=== PATIENT | male | born 1965 | race Caucasian/White ===

== ENCOUNTER 2017-12-18 19:40 | Emergency (ER) | payer OTHER, MEDICAID, SELFPAY ==
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
[2017-12-18 19:45] VITALS: BP 148/97; PULSE 88; RESP 14; TEMP 36.5; O2SAT 98
[2017-12-18 19:48] VITALS: BP 148/77; PULSE 88; RESP 14; TEMP 36.5; O2SAT 98
[2017-12-18 19:52] LABS: Add Manual Diff / Slide Review NO; Basophils Percent Auto 1.4 % (0-2); Eosinophils Percent Auto 2.7 % (2-4); Hematocrit 43.2 % (41-53); Lymphocytes Percent Auto 35.7 % (25-40); Mean Corpuscular HGB Conc 34.7 % (30-36); Mean Corpuscular Hemoglobin 32.1 PG (26-34); Mean Corpuscular Volume 92.6 fL (80-100); Monocytes Percent Auto 7.1 % (3-14); Neutrophils Absolute Auto 4800 /uL (3000-5900); Neutrophils Percent Auto 53.1 % (50-75); Platelet Count 234 X10^3/uL (150-400); Red Blood Cell Count 4.66 X10^6/uL (4.5-5.9); Red Cell Distribution Width 13.8 % (11.6-14.8)
[2017-12-18 20:03] LABS: Alanine Aminotransferase 32 IU/L (21-72); Albumin 4.9 g/dL (3.5-5.0); Alkaline Phosphatase 50 U/L (38-126); Aspartate Aminotransferase 45 IU/L (17-59); Bilirubin Total 0.3 mg/dL (0.2-1.3); Blood Urea Nitrogen 20 mg/dL (9-20); Calcium 9.4 mg/dL (8.4-10.2); Carbon Dioxide 23 mmol/L (22-32); Chloride 108 mmol/L (98-107); Creatine Kinase 166 U/L (55-170); Estimated Glomerular Filt Rate > 60.0 mL/min (>60); Globulin 2.5 g/dL (1.7-4.1); Glucose 117 mg/dL (70-100); HEMOLYSIS < 15 (0-50); Potassium 4.1 mmol/L (3.4-5.1); Sodium 145 mmol/L (137-145); Total Protein 7.4 g/dL (6.3-8.2)
[2017-12-18 20:18] LABS: CKMB % Relative Index 1.6 % (1.5-5.0); Creatine Kinase MB 2.71 ng/mL (<2.37)
[2017-12-18 20:20] LABS: Troponin I < 0.012 ng/mL (0.01-0.034)
[2017-12-18 20:36] VITALS: BP 132/40; PULSE 83; RESP 16; O2SAT 98
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
== END 2017-12-18 20:42 | disposition left against medical advice (07) ==
LOC: ED 20:05
PROVIDERS: Emergency Provider Emergency Medicine; Family Provider Family Medicine; PCP Family Medicine
DX: R55 Syncope and collapse (principal)
CPT/HCPCS: 36591; 70450; 71045; 72125; 80053; 82550; 82553; 82962; 84484; 85025; 93005; 93010; 99282

== ENCOUNTER → 2018-04-25 14:04 | Outpatient (CLI) | payer OTHER, MEDICAID, SELFPAY ==
--- NOTE | 2018-04-25 14:05 | DI.RAD.S_ITS ---
PROCEDURE: XR SHOULDER LT MIN 2V INDICATIONS: pain with internal rotation TECHNIQUE: 3 views of the shoulder were acquired. COMPARISON: [facility], , SHOULDER MINIMUM 2VIEW RIGHT, 01/05/2012, 17:17. FINDINGS: Bones: No fractures or dislocations. No suspicious bony lesions. Visualized ribs appear intact. Mild acromioclavicular angling humeral joint degeneration. Soft tissues: No suspicious soft tissue calcifications. IMPRESSION: Mild left shoulder joint degeneration. Dictated by: Delvin Saleh M.D. on 04/25/2018 at 16:13 Approved by: Delvin Saleh M.D. on 04/25/2018 at 16:20
== END ==
PROVIDERS: PCP Family Medicine; Visit Provider Family Medicine
DX: M25.512 Pain in left shoulder (principal); M19.012 Primary osteoarthritis, left shoulder
CPT/HCPCS: 73030

== ENCOUNTER → 2018-08-31 09:06 | Outpatient (CLI) | payer OTHER, MEDICAID, SELFPAY ==
[2018-08-31 09:22] LABS: Add Manual Diff / Slide Review NO; Basophils Absolute Auto 100 /uL (0-100); Basophils Percent Auto 1.3 % (0-2); Eosinophils Absolute Auto 200 /uL (0-450); Eosinophils Percent Auto 3.2 % (2-4); Hematocrit 45.3 % (41-53); Hemoglobin 15.8 g/dL (13.5-17.5); Lymphocytes Absolute Auto 1800 /uL (1100-4500); Mean Corpuscular HGB Conc 34.9 % (30-36); Mean Corpuscular Hemoglobin 33.2 PG (26-34); Monocytes Absolute Auto 800 /uL (0-900); Monocytes Percent Auto 11.7 % (3-14); Neutrophils Absolute Auto 3600 /uL (1500-7000); Neutrophils Percent Auto 55.8 % (50-75); Platelet Count 185 X10^3/uL (150-400); Red Blood Cell Count 4.77 X10^6/uL (4.5-5.9); Red Cell Distribution Width 13.6 % (11.6-14.8); White Blood Cell Count 6.5 X10^3/uL (4.5-11.0)
[2018-08-31 09:49] LABS: Alanine Aminotransferase 34 IU/L (21-72); Albumin 4.5 g/dL (3.5-5.0); Albumin Globulin Ratio 1.7 (1.0-2.8); Alkaline Phosphatase 54 U/L (38-126); Aspartate Aminotransferase 33 IU/L (17-59); BUN Creatinine Ratio 32.5 (6-22); Bilirubin Total 0.6 mg/dL (0.2-1.3); Blood Urea Nitrogen 26 mg/dL (9-20); Calcium 9.5 mg/dL (8.4-10.2); Carbon Dioxide 28 mmol/L (22-32); Chloride 101 mmol/L (98-107); Cholesterol 134 mg/dL (140-199); Estimated Glomerular Filt Rate > 60.0 mL/min (>60); Globulin 2.6 g/dL (1.7-4.1); Glucose 95 mg/dL (70-100); HDL Cholesterol 53 mg/dL (40-60); HEMOLYSIS < 15 (0-50); LDL Cholesterol Calculated 58 mg/dL (<100); Potassium 4.4 mmol/L (3.4-5.1); Sodium 138 mmol/L (137-145); Total Protein 7.1 g/dL (6.3-8.2); Triglycerides 115 mg/dL (35-150)
[2018-08-31 10:37] LABS: TSH w/ Reflex to FT4 1.04 uIU/mL (0.47-4.68)
== END ==
PROVIDERS: PCP Family Medicine; Visit Provider Family Medicine
DX: I34.1 Nonrheumatic mitral (valve) prolapse (principal); Z00.00 Encounter for general adult medical examination without abnormal findings; Z13.6 Encounter for screening for cardiovascular disorders
CPT/HCPCS: 36415; 80053; 80061; 84443; 85025

== ENCOUNTER 2019-09-07 15:13 | Emergency (ER) | payer OTHER, MEDICAID, SELFPAY ==
[2019-09-07 15:22] VITALS: BP 141/97; PULSE 102; RESP 18; TEMP 36.8; O2SAT 99; BMI 25.7
[2019-09-07 15:33] VITALS: BP 134/82; PULSE 90; RESP 16; O2SAT 97
--- NOTE | 2019-09-07 15:51 | ED.DENTAL ---
HPI - Dental/Oral <DALLAS Benites - Last Filed: 09/07/19 17:07> General Chief complaint: Dental/Oral Stated complaint: BAD TOOTH LEFT UPPER MOLAR Time Seen by Provider: 09/07/19 15:24 Source: patient Mode of arrival: Ambulatory Limitations: no limitations History of Present Illness HPI Narrative: The patient is a 54-year-old male current smoker with history of mitral valve prolapse who presents with a chief complaint of a ?bad tooth.He states has been bothering him for a few weeks, and he had an appointment with a dentist. However it was canceled due to states shut down. He is concerned that it is becoming infected as he has had dental infection before and it feels like this. He denies any fevers nausea vomiting or diarrhea. The tooth is his front right upper molar. He states has been broken for a long time. He states he is supposed to have an appointment with a dentist in a few days unless this appointment is canceled as well. Related Data Home Medications Medication Instructions Recorded Confirmed MULTIVITAMIN (Multivitamin 1 cap PO EVERY DAY #0 04/08/08 09/04/18 -) Previous Rx's Medication Instructions Recorded timolol maleate 1 drp OPHTH QDAY #5 5ml 02/27/16 pramipexole 1 mg tablet See Rx Instructions .ROUTE 07/27/19 .COMPLEX #60 tablet albuterol sulfate 90 mcg/actuation 2 puff INHALATION Q6H PRN #18 gram 09/07/19 aerosol inhaler baclofen 10 mg tablet See Rx Instructions .ROUTE 09/07/19 .COMPLEX #90 tablet meloxicam 7.5 mg tablet See Rx Instructions .ROUTE 09/07/19 .COMPLEX #60 tablet penicillin V potassium 500 mg PO QID 10 Days #40 tab 09/07/19 tramadol 50 mg PO Q8H PRN #7 tab 09/07/19 Allergies Allergy/AdvReac Type Severity Reaction Status Date / Time No Known Drug Allergies Allergy Verified 09/07/19 15:22 Review of Systems <DALLAS Benites - Last Filed: 09/07/19 17:07> Review of Systems Narrative: GENERAL: Denies chills, fatigue, malaise, fever, sweats. HEENT: See HPI RESPIRATORY: Denies dyspnea, cough, wheezing, hemoptysis, sputum. CARDIOVASCULAR: Denies chest pain, palpitations, orthopnea, edema, GASTROINTESTINAL: Denies nausea, vomiting, abdominal pain, diarrhea, constipation, melena. : Denies dysuria, frequency, incontinence, hematuria, urinary retention. MUSCULOSKELETAL: denies weakness, joint pain, or bony pain SKIN: Denies rash, skin lesions, or other NEUROLOGIC: Denies weakness, headache, numbness, change in speech, confusion, seizures, incoordination. PSYCHIATRIC: No concerning psychosocial issues. 12 point review of systems is negative except for those stated above Patient History <DALLAS Benites - Last Filed: 09/07/19 17:07> Medical History Acne (Resolved) Chicken pox (Resolved ~1970) Chronic back pain (Chronic 03/2013) Chronic headaches (Chronic) COPD (chronic obstructive pulmonary disease) (Chronic) Heart murmur (Chronic) Mitral valve prolapse (Chronic ~2011) Surgical History Anesthesia (Resolved) H/O inguinal hernia repair (Resolved) H/O removal of neck cyst (Resolved) Status post tonsillectomy and adenoidectomy (Resolved) Family History Mother Heart disease Social History marital status: Smoking Status: Current every day smoker alcohol intake: current (2+ A DAY ) substance use type: marijuana Smoking Status: Current every day smoker alcohol intake frequency: 3 or more drinks per day Alcohol type: beer Substance Use Type: marijuana Exam <DALLAS Benites - Last Filed: 09/07/19 17:07> Narrative Exam Narrative: GENERAL: This is a well-nourished, well-developed patient, no acute distress HEAD: Atraumatic. Normocephalic. No temporal or scalp tenderness. EYES: Pupils equal round and reactive. Extraocular motions intact. No scleral icterus. No injection or drainage. ENT: Nose without bleeding, purulent drainage or septal hematoma. Throat without erythema, tonsillar hypertrophy or exudate. Uvula midline. Airway patent. Poor dentition noted. Broken right upper molar with surrounding erythema, no palpable abscess. No obvious drainage. NECK: Trachea midline. No JVD or lymphadenopathy. Supple, nontender, no meningeal signs. CARDIOVASCULAR: Regular rate and rhythm RESPIRATORY: Clear to auscultation. Breath sounds equal bilaterally. No wheezes, rales, or rhonchi. No cough. No increased respiratory effort. No accessory muscle use. GASTROINTESTINAL: Abdomen soft, non-tender, nondistended. No hepato-splenomegaly, or palpable masses. No guarding. EXTREMITIES: No clubbing, cyanosis, or edema. No joint tenderness, effusion, or edema noted. BACK: Nontender without deformity or crepitance. No flank tenderness. NEURO: AOx3. SKIN: No rash or erythema. Initial Vital Signs Initial Vital Signs: Vital Signs Temperature 98.2 F 09/07/19 15:22 Pulse Rate 102 H 09/07/19 15:22 Respiratory Rate 18 09/07/19 15:22 Blood Pressure 141/97 H 09/07/19 15:22 Pulse Oximetry 99 09/07/19 15:22 <Scarlett Michaud DO - Last Filed: 09/07/19 19:23> Initial Vital Signs Initial Vital Signs: Vital Signs Temperature 98.2 F 09/07/19 15:22 Pulse Rate 102 H 09/07/19 15:22 Respiratory Rate 18 09/07/19 15:22 Blood Pressure 141/97 H 09/07/19 15:22 Pulse Oximetry 99 09/07/19 15:22 Scores <DALLAS Benites - Last Filed: 09/07/19 17:07> GCS [place] coma scale eye opening: Spontaneous [place] coma scale verbal response: Orientated [place] coma scale motor response: Obey commands [place] coma scale total score: 15 Course <DALLAS Benites - Last Filed: 09/07/19 17:07> Vital Signs Vital signs: Vital Signs - 8 hr 09/07/19 15:22 09/07/19 15:33 Temperature 98.2 F Pulse Rate 102 H 90 Respiratory Rate 18 16 Blood Pressure 141/97 H Blood Pressure [Right Arm] 134/82 Pulse Oximetry 99 97 <Scarlett Michaud DO - Last Filed: 09/07/19 19:23> Vital Signs Vital signs: Vital Signs - 8 hr 09/07/19 15:22 09/07/19 15:33 Temperature 98.2 F Pulse Rate 102 H 90 Respiratory Rate 18 16 Blood Pressure 141/97 H Blood Pressure [Right Arm] 134/82 Pulse Oximetry 99 97 MDM - Dental/Oral <MARCIA Benites-BC - Last Filed: 09/07/19 17:07> [facility] Narrative Medical decision making narrative: The patient is a 54-year-old male who presents with a chief complaint of dental pain and concern for infection. Exam does indicate infection. However no palpable abscess. I will initiate treatment with penicillin, discussed at length strict follow-up with his dentist as scheduled discussed monitoring for signs and symptoms of systemic infection. Discussed tramadol for pain. Patient has no questions or concerns upon discharge and states understanding return precautions as well as follow-up care. Discharge Plan Departure Patient Disposition: Home Clinical Impression: Dental infection Discharge Date/Time: 09/07/19 16:00 Instructions: Tooth Abscess, DI for Dental Pain Activity Restrictions/Additional Instructions: Thank you for trusting us with your care today. Given your exam, sent [facility] This will treat your dental infection. As discussed, please follow-up with primary care provider and dentist. I also sent in a small prescription of tramadol for pain You have been prescribed narcotic medications. While on these medications you cannot drive or operate heavy machinery. Additionally you cannot sign legal documents or perform any duties such as this. Many people get constipated on narcotic medications so it would be advisable to discuss stool softeners with the pharmacist when you pick up and delivery driver your prescription. Please understand that we cannot provide further refills of narcotics or controlled substances through the ED. Prescriptions: New penicillin V potassium 500 mg tablet 500 mg PO QID 10 Days Qty: 40 RF: 0 tramadol 50 mg tablet 50 mg PO Q8H PRN (Reason: pain) Qty: 7 RF: 0 No Action MULTIVITAMIN (Multivitamin -) 1 cap PO EVERY DAY Qty: 0 RF: 0 timolol maleate 0.5 % drops 1 drp OPHTH QDAY Qty: 5 RF: 0 pramipexole 1 mg tablet See Rx Instructions .ROUTE .COMPLEX Qty: 60 RF: 2 albuterol sulfate 90 mcg/actuation HFA aerosol inhaler 2 puff INHALATION Q6H PRN (Reason: shortness of breath) Qty: 18 RF: 6 baclofen 10 mg tablet See Rx Instructions .ROUTE .COMPLEX Qty: 90 RF: 1 meloxicam 7.5 mg tablet See Rx Instructions .ROUTE .COMPLEX Qty: 60 RF: 3 Referrals: Mateo Gao MD [Primary Care Provider] -
== END 2019-09-07 16:00 | disposition home or self-care (01) ==
PROVIDERS: Emergency Provider Nurse Practitioner Family; PCP Family Medicine
DX: K04.7 Periapical abscess without sinus (principal)
CPT/HCPCS: 99281

== ENCOUNTER → 2022-10-15 09:06 | Outpatient (CLI) | payer OTHER, MEDICAID, SELFPAY ==
[2022-10-15 09:51] LABS: Add Manual Diff / Slide Review NO; Basophils Absolute Auto 100 /uL (0-100); Basophils Percent Auto 1.2 % (0-2); Eosinophils Absolute Auto 300 /uL (0-450); Eosinophils Percent Auto 5.5 % (2-4); Hematocrit 34.5 % (41-53); Hemoglobin 11.5 g/dL (13.5-17.5); Lymphocytes Absolute Auto 1700 /uL (1100-4500); Lymphocytes Percent Auto 28.5 % (25-40); Mean Corpuscular HGB Conc 33.4 % (30-36); Mean Corpuscular Hemoglobin 32.7 PG (26-34); Monocytes Absolute Auto 900 /uL (0-900); Monocytes Percent Auto 14.6 % (3-14); Neutrophils Absolute Auto 3000 /uL (1500-7000); Neutrophils Percent Auto 50.2 % (50-75); Platelet Count 202 X10^3/uL (150-400); Red Blood Cell Count 3.52 X10^6/uL (4.5-5.9); Red Cell Distribution Width 14.8 % (11.6-14.8)
[2022-10-15 10:06] LABS: BUN Creatinine Ratio 13.2 (6-22); Blood Urea Nitrogen 15 mg/dL (9-20); Carbon Dioxide 22 mmol/L (22-32); Chloride 105 mmol/L (98-107); Estimated Glomerular Filt Rate > 60 mL/min (>60); Glucose 85 mg/dL (70-100); HEMOLYSIS < 15 (0-50); Potassium 4.1 mmol/L (3.4-5.1); Sodium 135 mmol/L (137-145)
== END ==
PROVIDERS: PCP Family Medicine; Referring Provider Internal Medicine Nephrology; Visit Provider Internal Medicine Nephrology
DX: N17.9 Acute kidney failure, unspecified (principal)
CPT/HCPCS: 36415; 80048; 85025

== ENCOUNTER → 2022-11-11 15:23 | Outpatient (CLI) | payer OTHER, MEDICAID, SELFPAY ==
[2022-11-11 18:08] LABS: TSH w/ Reflex to FT4 2.74 uIU/mL (0.47-4.68)
== END ==
PROVIDERS: PCP Family Medicine; Referring Provider Physician Assistant; Visit Provider Physician Assistant
DX: R79.89 Other specified abnormal findings of blood chemistry (principal)
CPT/HCPCS: 36415; 84443

== ENCOUNTER → 2022-12-10 08:46 | Outpatient (CLI) | payer OTHER, MEDICAID, SELFPAY ==
[2022-12-10 09:56] LABS: TSH w/ Reflex to FT4 2.55 uIU/mL (0.47-4.68)
== END ==
PROVIDERS: PCP Family Medicine; Referring Provider Family Medicine; Visit Provider Family Medicine
DX: I48.91 Unspecified atrial fibrillation (principal)
CPT/HCPCS: 36415; 84443

== ENCOUNTER → 2023-03-04 15:15 | Outpatient (CLI) | payer OTHER, MEDICAID, SELFPAY ==
[2023-03-04 16:39] LABS: BUN Creatinine Ratio 10.7 (6-22); Blood Urea Nitrogen 12 mg/dL (9-20); Calcium 9.7 mg/dL (8.4-10.2); Carbon Dioxide 22 mmol/L (22-32); Chloride 104 mmol/L (98-107); Estimated Glomerular Filt Rate > 60 mL/min (>60); Glucose 95 mg/dL (70-100); HEMOLYSIS < 15 (0-50); Potassium 4.6 mmol/L (3.4-5.1); Sodium 139 mmol/L (137-145)
== END ==
PROVIDERS: PCP Family Medicine; Referring Provider Internal Medicine; Visit Provider Internal Medicine
DX: I34.0 Nonrheumatic mitral (valve) insufficiency (principal)
CPT/HCPCS: 36415; 80048

== ENCOUNTER → 2023-03-14 07:53 | Outpatient (CLI) | payer OTHER, MEDICAID, SELFPAY ==
--- NOTE | 2023-03-14 07:55 | DI.ECHO.S_ITS ---
[place] [facility]---------+ [facility] +---------+ : : [address] : : : : [id number] : : : : Phone: [phone]+ Echocardiogram Report + + :Name: ERIBERTO WATERS Study Date: 03/14/2023 Height: 74 in : :[facility] ReadingLocation: Weight: 217 lb : : Gender: Male BSA: 2.2 m2 : :: 1965 Age: 57 yrs BP: 110/78 mmHg: :Reason For Study: MITRAL REGURGITATION : :Ordering Physician: ЕЛЕНА, : :CARLOS Performed By: Radha Olson : :Referring: CARLOS CHRISTIANSEN : + + Interpretation Summary A-fib with rapid ventricular response. Heart rate is 109-112 bpm. Normal LV size and wall thickness. Normal wall motion and LV systolic function. Ejection fraction 60-65%. Severe left atrial enlargement and moderate right atrial enlargement. Mitral valve posterior leaflet is prolapsed with severe eccentric anteroseptally directed mitral regurgitation. Effective regurgitant area 0.6 magnet maker? regurgitant volume is 63 mL. There is pulmonary vein systolic flow reversal consistent with severe mitral regurgitation. There is a pacing lead traversing the tricuspid valve Estimated PA systolic pressure is 25 mm Hg assuming RA pressure of 3 mm Hg. Compared to prior study obtained September 09, 2022, heart rate is more rapid. LV is more dynamic. Ejection fraction is up from 35-40% to now being 60-65%. Procedure: A two-dimensional transthoracic echocardiogram with color flow and Doppler was performed. The study quality was technically adequate. Comparison is made with the echocardiogram of 09/09/2022. The patient was in atrial fibrillation with rapid ventricular response during the exam with a heart rate exceeding 100 bpm. Left Ventricle: The left ventricle is normal in size and wall thickness. The ejection fraction is estimated to be 60-65%. Diastolic function could not be accurately assessed due to tachycardia. Right Ventricle: The right ventricle is normal in size and function. Atria: The left atrium is severely dilated. The right atrium is moderately dilated. There is no Doppler evidence for an interatrial shunt. Mitral Valve: The mitral valve leaflets appear mildly thickened, but open well. There is prolapse of the posterior mitral valve leaflet(s). Difficult to estimate severity of regurgitant jet due to eccentric jet, appears to be at least moderate regurgitation. Aortic Valve: The aortic valve is trileaflet. The aortic valve opens well. There is no aortic valve stenosis. No aortic regurgitation is present. Tricuspid Valve: The tricuspid valve is normal in structure and function. There is trace tricuspid regurgitation. Pulmonic Valve: The pulmonic valve is not well seen, but is grossly normal. There is mild pulmonic regurgitation. Great Vessels: The aortic root is normal size. The dimensions of the ascending aorta are normal. The IVC is of normal diameter and collapses greater than 50% with a sniff. This suggests a low right atrial pressure of 3 mm Hg. Pericardium/ Pleura There is no pericardial effusion. There is no pleural effusion. MMode/2D Measurements & Calculations LVIDd: 4.9 cm LVOT diam: 2.1 cm LVIDs: 3.6 cm Ao root diam: 3.9 cm FS: 26.2 % asc Aorta Diam: 3.8 cm IVSd: 1.0 cm Ao Arch Diam (Prox Trans): 2.9 cm LVPWd: 1.0 cm LV araya. diameter/BSA (cm/m^2): 2.2 LV sys. diameter/BSA (cm/m^2): 1.6 LA A2 area: 30.9 cm2 RA long axis: 5.2 cm LA A4 area: 29.8 cm2 RA area: 25.4 cm2 LA length (vol): 6.3 cm RA vol: 105.4 ml LA vol: 123.8 ml RA : 46.9 ml/m2 LA vol index: 55.0 ml/m2 IVC diam: 1.0 cm RVD1 (basal): 4.0 cm RVD2 (mid): 2.8 cm TAPSE: 2.5 cm Doppler Measurements & Calculations Ao V2 max: 108.8 cm/sec LVOT Max Larry: 83.2 cm/sec Ao V2 mean: 76.0 cm/sec LV V1 max P.8 mmHg Ao max P.7 mmHg LV V1 VTI: 11.6 cm Ao mean P.5 mmHg SO(I,D): 2.7 cm2 Ao V2 VTI: 15.2 cm SO(V,D): 2.7 cm2 sev ratio: 0.77 SO indexed to BSA (cm^2/m^2): 1.2 Med Peak E' Larry: 8.3 cm/sec TR max larry: 219.0 cm/sec Lat Peak E' Larry: 14.0 cm/sec TR max P.3 mmHg MR ERO: 0.60 cm2 PA V2 max: 85.1 cm/sec PA V2 mean: 59.9 cm/sec PA mean P.6 mmHg PA pr(Accel): 55.9 mmHg MR PISA: 6.0 cm2 SV(LVOT): 41.5 ml MR flow rate: 258.7 cm3/sec MR PISA radius: 0.98 cm Electronically signed by: Carlos Christiansen M.D. on Reading Physician:03/17/2023 05:36 PM
== END ==
PROVIDERS: PCP Family Medicine; Referring Provider Internal Medicine; Visit Provider Internal Medicine
DX: I34.0 Nonrheumatic mitral (valve) insufficiency (principal); I34.1 Nonrheumatic mitral (valve) prolapse; I37.1 Nonrheumatic pulmonary valve insufficiency
CPT/HCPCS: 93306

== ENCOUNTER 2023-06-14 11:04 | Emergency (ER) | payer OTHER, MEDICAID, SELFPAY ==
[2023-06-14] VITALS (23 sets, daily range): BP systolic 102–148; BP diastolic 60–84; PULSE 79–80; RESP 12–24; TEMP 36.4; O2SAT 93–98; BMI 30.8
--- NOTE | 2023-06-14 11:19 | DI.RAD.S_ITS ---
PROCEDURE: XR CHEST 1V INDICATIONS: Shortness of breath TECHNIQUE: One view of the chest was acquired. COMPARISON: [facility], CR, XR CHEST 1V, 12/18/2017, 19:29. FINDINGS: Surgical changes and devices: Disease sternotomy. Left-sided pacer. Lungs and pleura: Lungs are clear. No pleural effusions or pneumothorax. Mediastinum: Mediastinal contours appear normal. Heart size is normal. Bones and chest wall: No suspicious bony lesions. Overlying soft tissues appear unremarkable. IMPRESSION: No acute cardiopulmonary abnormality is seen. Dictated by: Tata Hooper M.D. on 06/14/2023 at 11:58 Approved by: Tata Hooper M.D. on 06/14/2023 at 11:58
[2023-06-14 11:46] LABS: Add Manual Diff / Slide Review NO; Basophils Absolute Auto 100 /uL (0-100); Basophils Percent Auto 1.3 % (0-2); Eosinophils Absolute Auto 200 /uL (0-450); Eosinophils Percent Auto 2.4 % (2-4); Hematocrit 28.2 % (41-53); Hemoglobin 9.6 g/dL (13.5-17.5); Lymphocytes Absolute Auto 900 /uL (1100-4500); Lymphocytes Percent Auto 9.9 % (25-40); Mean Corpuscular Hemoglobin 33.4 PG (26-34); Mean Corpuscular Volume 98.4 fL (80-100); Monocytes Absolute Auto 900 /uL (0-900); Monocytes Percent Auto 9.1 % (3-14); Neutrophils Absolute Auto 7300 /uL (1500-7000); Neutrophils Percent Auto 77.3 % (50-75); Platelet Count 400 X10^3/uL (150-400); Red Blood Cell Count 2.87 X10^6/uL (4.5-5.9); Red Cell Distribution Width 14.6 % (11.6-14.8); White Blood Cell Count 9.4 X10^3/uL (4.5-11.0)
[2023-06-14 11:53] LABS: INR 1.2 (0.9-1.3); Prothrombin Time 13.6 SECONDS (9.4-12.5)
[2023-06-14 11:58] LABS: Lactate (Lactic Acid) 1.4 mmol/L (0.7-2.1)
[2023-06-14 12:00] LABS: Alanine Aminotransferase 231 IU/L (<50); Albumin 3.9 g/dL (3.5-5.0); Albumin Globulin Ratio 1.3 (1.0-2.8); Alkaline Phosphatase 149 U/L (38-126); Aspartate Aminotransferase 121 IU/L (17-59); Bilirubin Total 0.6 mg/dL (0.2-1.3); Blood Urea Nitrogen 18 mg/dL (9-20); Calcium 9.3 mg/dL (8.4-10.2); Carbon Dioxide 26 mmol/L (22-32); Chloride 98 mmol/L (98-107); Estimated Glomerular Filt Rate > 60 mL/min (>60); Globulin 3.1 g/dL (1.7-4.1); Glucose 96 mg/dL (70-100); HEMOLYSIS < 15 (0-50); Potassium 5.3 mmol/L (3.4-5.1); Sodium 131 mmol/L (137-145)
[2023-06-14 12:09] LABS: NT-proBNP (BNP-Adult 18+) 2730 pg/mL (<125)
[2023-06-14 12:17] LABS: Troponin I 0.218 ng/mL (0.01-0.034)
[2023-06-14] MEDS: ASPIRIN 81 MG CHEW TAB 324 MG PO (12:54)
[2023-06-14 13:27] LABS: NT-proBNP (BNP-Adult 18+) 2510 pg/mL (<125)
--- NOTE | 2023-06-14 14:39 | DI.CT.S_ITS ---
PROCEDURE: CT ANGIO CHEST PE PROTOCOL INDICATIONS: recent valve replacement, had pericardial effusion, sob TECHNIQUE: After the administration of intravenous contrast, 2 mm thick sections acquired from the pulmonary apices to the posterior costophrenic angles. 3-dimensional maximum intensity projection (MIP) coronal and sagittal reformats were then acquired through the thorax. For radiation dose reduction, the following was used: automated exposure control, adjustment of mA and/or kV according to patient size. COMPARISON: None. FINDINGS: Image quality: Diagnostic. Pulmonary arteries: Pulmonary arteries are normal in size, and demonstrate no intraluminal filling defects to suggest central pulmonary embolism. Lower Neck: No enlarged lymph nodes. Thyroid: No thyroid nodules which require sonographic follow up, per consensus guidelines. Axillae: No enlarged lymph nodes. Chest Wall: Unremarkable. Bones: Unremarkable. Lungs and Pleura: No pneumothorax or pleural effusions. No consolidation or suspicious nodules. Heart: Heart size is normal. No pericardial effusion. Calcification of the coronary vasculature is present. Thoracic Vessels: No aortic aneurysm. Mediastinum and Bee: No enlarged lymph nodes. Esophagus: No wall thickening. No hiatal hernia. Upper Abdomen: Visualized upper abdomen solid organs and bowel loops appear normal. IMPRESSION: 1. No acute process. 2. No pulmonary embolus. 3. Coronary artery disease. Dictated by: Tata Hooper M.D. on 06/14/2023 at 15:02 Approved by: Tata Hooper M.D. on 06/14/2023 at 15:13
--- NOTE | 2023-06-14 14:39 | ED_ITS ---
HPI - SOB/Dyspnea General Chief Complaint: Shortness of Breath/Dyspnea Stated Complaint: fluid around heart sent by cardiology Time Seen by Provider: 06/14/23 12:26 Source: patient Mode of arrival: Wheelchair Limitations: no limitations History of Present Illness HPI Narrative: 57-year-old male with history of congestive heart failure, atrial fibrillation, prior cardiac arrest with a month long stay in August 2022, pacemaker, endocarditis, COPD, catheterization on 06/07, mitral valve repair on 06/01/2023 and pericardiocentesis. Patient presents with complaint of some dizziness, no syncope and some shortness of breath. He states it has a little bit worse today in his legs have gotten a little bit more swollen over the last 2 or 3 days. He denies any new chest pain. He did have an open valve replacement so he states he has some persistent discomfort in his chest but states really minimal pain. He states he does not have any chest pain while seated, he does not feel short of breath while seated. He states when he exerts himself he does feel short of breath. He denies fevers or chills. No cold cough congestion that is new. He has a chronic cough since his surgery which has not gone away it has been nonproductive. He denies orthopnea. No nausea no vomiting. Been a day and a half since his last bowel movement but passing gas regularly. Notes some increased swelling in his bilateral lower extremities. Patient was at a primary care follow-up, they called his Cardiology team who recommended that he come to the emergency department. Patient states he did have a pericardiocentesis while in the hospital they did drain fluid had that catheter removed. Patient states no known drug allergies. Quit smoking on August 30, 2022. Occasional alcohol, no IV drugs. Related Data Home Medications Medication Instructions Recorded Confirmed MVI 1 ea PO DAILY 10/19/22 12/06/22 Vitamin B12 100 mcg PO DAILY 10/19/22 12/06/22 amiodarone 100 mg tablet 200 mg PO DAILY 10/19/22 12/06/22 ascorbic acid (vitamin C) 1,000 mg 1 g PO DAILY 10/19/22 12/06/22 tablet spironolactone 25 mg tablet 25 mg PO DAILY 10/19/22 12/06/22 apixaban 5 mg tablet (Eliquis) 5 mg PO ONCE 06/14/23 aspirin 81 mg tablet,delayed 81 mg PO DAILY 06/14/23 06/14/23 release latanoprost 0.005 % eye drops drp EYE-BOTH QPM 06/14/23 06/14/23 losartan 25 mg tablet 12.5 mg PO DAILY 06/14/23 06/14/23 metoprolol succinate 25 mg 25 mg PO DAILY 06/14/23 06/14/23 tablet,extended release 24 hr pantoprazole 40 mg tablet,delayed 40 mg PO DAILY 06/14/23 06/14/23 release Previous Rx's Medication Instructions Recorded albuterol sulfate 90 mcg/actuation 2 puff inhalation Q6H PRN 03/09/21 aerosol inhaler shortness of breath #18 grams pramipexole 1 mg tablet 2 mg (2 x 1 mg) PO QPM #180 tabs 04/14/23 furosemide 40 mg tablet (Lasix) 40 mg PO DAILY #3 tabs 06/14/23 Allergies Allergy/AdvReac Type Severity Reaction Status Date / Time No Known Drug Allergies Allergy Verified 06/14/23 11:19 Review of Systems Review of Systems ROS Unobtainable: All systems reviewed & are unremarkable except as noted in HPI and below Patient History Medical History Heart murmur COPD (chronic obstructive pulmonary disease) Acne Chicken pox (~1970) Chronic back pain (03/2013) Chronic headaches Mitral valve prolapse (~2011) Endocarditis (01/24/14) Surgical History Anesthesia H/O removal of neck cyst H/O inguinal hernia repair Status post tonsillectomy and adenoidectomy Family History Mother Heart disease Social History marital status: Smoking Status: Former smoker alcohol intake: current (2+ A DAY ) substance use type: marijuana Smoking Status: Former smoker alcohol intake frequency: 0-2 drinks per day Alcohol type: beer Substance Use Type: marijuana Exam Narrative Exam Narrative: GENERAL: Alert and oriented x three, male in mild distress. HEENT: Head normocephalic, atraumatic, EOMI, pupils reactive, face symmetric, moist mucous membranes NECK: Supple, full range of motion CARDIOVASCULAR: Regular rate and rhythm without murmurs, rubs or gallops. Patient has midline incision which appears to be well healing, clean dry and intact. No JVD. Trace edema bilateral lower extremities. RESPIRATORY: Breath sounds equal bilaterally, no wheezes rales or rhonchi. No tachypnea or accessory muscle use. ABDOMEN: Soft, nontender. Normoactive bowel sounds all 4 quadrants. No guarding or rebound, rigidity, no mass : No CVA tenderness EXTREMITIES: Normal range of motion, no clubbing, trace edema bilateral. Neurovascularly intact NEUROLOGICAL: Cranial nerves II through XII grossly intact. Moving all extremities SKIN: Warm, dry, no petechiae, no rashes or lesions. Initial Vital Signs Initial Vital Signs: Vital Signs Temperature 97.6 F 06/14/23 11:06 Pulse Rate 80 06/14/23 11:06 Respiratory Rate 16 06/14/23 11:06 Blood Pressure 148/84 H 06/14/23 11:06 Pulse Oximetry 96 06/14/23 11:06 Oxygen Delivery Method Room Air 06/14/23 11:06 Course Orders Ordered: ED Orders 06/14/23 11:19 XR chest 1V Stat EKG-12 Lead Stat Measure peak expiratory flow ONCE RT Consult Eval and Treat NOW 06/14/23 11:40 BNP [NT-proBNP (BNP-Adult 18+)] Stat Complete Blood Count AUTO DIFF Stat Comprehensive Metabolic Panel Stat Lactate (Lactic Acid) Stat NT-proBNP (BNP-Adult 18+) Stat Prothrombin Time INR Stat Troponin I Stat 06/14/23 14:12 Trop I [Troponin I] Stat 06/14/23 14:39 CT angio chest PE protocol Stat Discontinued Medications Aspirin (Aspirin 81 Mg Chew Tab) 324 mg PO NOW ONE Stop: 06/14/23 12:27 Last Admin: 06/14/23 12:54 Dose: 324 mg Documented By: NINA Furosemide (Furosemide 40 Mg/4 Ml Vial) 40 mg IV NOW ONE Stop: 06/14/23 14:48 Last Admin: 06/14/23 15:00 Dose: 40 mg Documented By: NINA Vital Signs Vital signs: Vital Signs - 8 hr 06/14/23 11:06 06/14/23 11:14 06/14/23 11:15 Temperature 97.6 F Pulse Rate 80 80 Respiratory Rate 16 12 Blood Pressure 148/84 H 148/84 H Pulse Oximetry 96 93 Oxygen Delivery Method Room Air 06/14/23 11:15 06/14/23 11:30 06/14/23 12:00 Temperature Pulse Rate 80 80 80 Respiratory Rate 18 24 19 Blood Pressure 140/80 Pulse Oximetry 97 98 96 Oxygen Delivery Method 06/14/23 12:27 06/14/23 12:27 06/14/23 12:30 Temperature Pulse Rate 80 Respiratory Rate 14 Blood Pressure 115/61 127/64 Pulse Oximetry 97 Oxygen Delivery Method 06/14/23 12:30 06/14/23 12:50 06/14/23 12:50 Temperature Pulse Rate 80 80 Respiratory Rate 13 21 Blood Pressure 132/69 Pulse Oximetry 97 98 Oxygen Delivery Method 06/14/23 13:00 06/14/23 13:00 06/14/23 13:15 Temperature Pulse Rate 80 Respiratory Rate 15 Blood Pressure 133/70 121/70 Pulse Oximetry 97 Oxygen Delivery Method Room Air 06/14/23 13:15 06/14/23 13:30 06/14/23 13:30 Temperature Pulse Rate 80 80 Respiratory Rate 13 19 Blood Pressure 102/60 Pulse Oximetry 97 96 Oxygen Delivery Method 06/14/23 13:45 06/14/23 13:45 06/14/23 14:00 Temperature Pulse Rate 80 80 Respiratory Rate 12 14 Blood Pressure 107/63 Pulse Oximetry 96 95 Oxygen Delivery Method 06/14/23 14:01 06/14/23 14:01 06/14/23 14:15 Temperature Pulse Rate 80 Respiratory Rate 15 Blood Pressure 126/67 118/60 Pulse Oximetry 95 Oxygen Delivery Method 06/14/23 14:15 06/14/23 14:29 06/14/23 14:30 Temperature Pulse Rate 80 80 Respiratory Rate 13 16 Blood Pressure 133/77 Pulse Oximetry 94 96 Oxygen Delivery Method 06/14/23 14:30 06/14/23 15:00 06/14/23 15:02 Temperature Pulse Rate 80 80 Respiratory Rate 21 Blood Pressure 126/74 Pulse Oximetry 96 97 Oxygen Delivery Method 06/14/23 15:02 06/14/23 15:15 06/14/23 15:15 Temperature Pulse Rate 80 79 Respiratory Rate 14 16 Blood Pressure 131/73 Pulse Oximetry 98 96 Oxygen Delivery Method 06/14/23 15:29 06/14/23 15:30 06/14/23 15:30 Temperature Pulse Rate 79 79 Respiratory Rate 15 12 Blood Pressure 121/72 Pulse Oximetry 95 96 Oxygen Delivery Method 06/14/23 15:45 06/14/23 15:45 Temperature Pulse Rate 79 Respiratory Rate 15 Blood Pressure 122/70 Pulse Oximetry 95 Oxygen Delivery Method MDM - SOB/Dyspnea Lab Data 06/14/23 11:40 06/14/23 11:40 Labs: Lab Results 06/14/23 06/14/23 06/14/23 Range/Units 11:40 11:40 14:12 WBC 9.4 (4.5-11.0) X10^3/uL RBC 2.87 L (4.5-5.9) X10^6/uL Hgb 9.6 L (13.5-17.5) g/dL Hct 28.2 L (41-53) % MCV 98.4 (80-100) fL MCH 33.4 (26-34) PG MCHC 34.0 (30-36) % RDW 14.6 (11.6-14.8) % Plt Count 400 (150-400) X10^3/uL Neut % (Auto) 77.3 H (50-75) % Lymph % (Auto) 9.9 L (25-40) % Thayer % (Auto) 9.1 (3-14) % Eos % (Auto) 2.4 (2-4) % Baso % (Auto) 1.3 (0-2) % Neut # (Auto) 7300 H (0246-5528) /uL Lymph # (Auto) 900 L (1671-9433) /uL Thayer # (Auto) 900 (0-900) /uL Eos # (Auto) 200 (0-450) /uL Baso # (Auto) 100 (0-100) /uL PT 13.6 H (9.4-12.5) SECONDS INR 1.2 (0.9-1.3) Sodium 131 L (137-145) mmol/L Potassium 5.3 H (3.4-5.1) mmol/L Chloride 98 (98-107) mmol/L Carbon Dioxide 26 (22-32) mmol/L BUN 18 (9-20) mg/dL Creatinine 1.00 (0.66-1.25) mg/dL Estimated GFR > 60 (>60) mL/min BUN/Creatinine Ratio 18.0 (6-22) Glucose 96 (70-100) mg/dL Lactate 1.4 (0.7-2.1) mmol/L Calcium 9.3 (8.4-10.2) mg/dL Total Bilirubin 0.6 (0.2-1.3) mg/dL AST 121 H (17-59) IU/L ALT 231 H (<50) IU/L Alkaline Phosphatase 149 H (38-126) U/L Troponin I 0.218 H* 0.216 H* (0.01-0.034) ng/mL NT-Pro-B Natriuret Pep 2730 H 2510 H (<125) pg/mL Total Protein 7.0 (6.3-8.2) g/dL Albumin 3.9 (3.5-5.0) g/dL Globulin 3.1 (1.7-4.1) g/dL Albumin/Globulin Ratio 1.3 (1.0-2.8) Urine Dip Bedside Urine Glucose Negative Bedside Urine Bilirubin - Negative Bedside Urine Ketone - Negative Urine Specific [place] 1.005 Bedside Urine Occult Blood - Negative Bedside Urine pH 6.0 Bedside Urine Protein - Negative Bedside Urine Urobilinogen - Negative Bedside Urine Nitrite - Negative Bedside Urine Leukocytes - Negative Esterase Imaging Data Chest x-ray: Radiologist's Impression: Min Giraldo??57??M??1965 ? Allergy/Adv: No Known Drug Allergies Close Chest X-Ray (Signed) Tata Hooper - 06/14/23 Echocardiogram Ultrasound (Signed) Leyt Mosley - 03/14/23 Shoulder X-Ray (Signed) Delvin Saleh - 04/25/[address] (Signed) Loco Rivas - 12/18/17 Chest X-Ray (Signed) Loco Rivas - 12/18/[address] (Signed) Loco Rivas - 12/18/[address] [address] XRay Report Signed Patient: Min Giraldo MR#: [id number] : 1965 Acct:[id number] Age/Sex: 57 / M Date of Service: 06/14/23 Loc: ED Accession Number: [id number] Procedure: XR chest 1V Ordering Provider: Scarlett Michaud D.O. PROCEDURE: XR CHEST 1V INDICATIONS: Shortness of breath TECHNIQUE: One view of the chest was acquired. COMPARISON: [facility], CR, XR CHEST 1V, 12/18/2017, 19:29. FINDINGS: Surgical changes and devices: Disease sternotomy. Left-sided pacer. Lungs and pleura: Lungs are clear. No pleural effusions or pneumothorax. Mediastinum: Mediastinal contours appear normal. Heart size is normal. Bones and chest wall: No suspicious bony lesions. Overlying soft tissues appear unremarkable. IMPRESSION: No acute cardiopulmonary abnormality is seen. Dictated by: Tata Hooper M.D. on 06/14/2023 at 11:58 Approved by: Tata Hooper M.D. on 06/14/2023 at 11:58 ECG Data Attestation: I personally reviewed and interpreted this ECG as follows: Prior ECG tracings: available for review Interpretation: Atrial paced rhythm, rate 80 RI 05/11/2025 QRS of 94 QTC 427. Patient has prior from 12/18/2017 T-waves are little bit more flattened today but patient also had significant mitral valve replacement and open heart surgery in the interim, [facility] Narrative Medical decision making narrative: 57-year-old male with recent mitral valve replacement, describing shortness of breath with exertion and some dizziness and swelling in his legs worse in the last day or so. Patient had open mitral valve replacement did not having a pericardial centesis afterwards. His surgery was on the 01 of June. He continues to be on Eliquis, he is on his current medications regularly. Was sent from primary care for increased symptoms after they discussed with his cardiac team. Patient's hemoglobin is 9.6 but did have significant cardiac surgery, platelets of 400 white count of 9.4 INR is 1.2, creatinine BUN electrolytes are overall fairly appropriate potassium is 5.3. LFTs are elevated, troponin is positive 0.218, we will hold off on heparin drip as patient has not had chest pain does not feel short of breath at rest in his currently anticoagulated on Eliquis. He does have a BNP of 2510. I would suspect patient's troponin maybe lower at this point postsurgically but we will trend out. I do not have his prior labs available. EKG has some indeterminate changes but that is from 2018 patient has had significant Cardiothoracic surgery in the interim. No acute ST elevation appreciated. Plan for CT chest to evaluate for pericardial effusion do not have echo easily available here today. CT chest shows no acute process, no pulmonary emboli, no pericardial effusion, calcification cardiovascular present. Coronary artery disease. Repeat troponin fairly trending down words at 0.216 Spoke with patient's surgical team, Dr. Valera is his Cardiothoracic surgeon at [place]. Spoke with cardiothoracic surgery at [place]. Review patient's findings here today. They state troponin being elevated is still expected at this rate. BNP 25 10, reviewed CT chest does not show pericardial effusion, no significant changes there was some coronary calcification. They feel patient can be discharged home would recommend increasing his diuretics for the next 3 days continue to avoid salt continue to monitor weights should have follow-up shortly with the office. Discussed findings with patient, patient notes his blood pressure has been controlled at home. Weight has been 237 to 240lbs last several days kind of ranging on and off each day. Patient notes that he was on Lasix in the hospital but is only on spironolactone currently. We will add for the next several days potassium was slightly elevated sulfa not at any potassium currently. Patient did come with his home medication list this was reviewed. Current medications include amiodarone, aspirin 81 mg, losartan, metoprolol, pantoprazole and spironolactone, oxycodone and pramipexole. Discharge Plan Departure Patient Disposition: Home Clinical Impression: S/P mitral valve replacement, CHF (congestive heart failure) Activity Restrictions/Additional Instructions: I spoke with your Cardiothoracic team today they do recommend increasing your diuretics for the next 3 days. They also recommended continuing to avoid salt, check your weight is regularly and would like to have you follow-up with the office at your appointment on Tuesday. Prescription for additional Lasix is included, take 1 tablet daily x 3 days. Please return for new or worsening chest pain, shortness of breath, lightheadedness or passing out, increasing swelling of your extremities or if you are having any other new or concerning changes. Prescriptions: New furosemide [Lasix] 40 mg tablet 40 mg PO DAILY Qty: 3 0RF No Action amiodarone 100 mg tablet 200 mg PO DAILY spironolactone 25 mg tablet 25 mg PO DAILY Vitamin B12 100 mcg PO DAILY ascorbic acid (vitamin C) 1,000 mg tablet 1 g PO DAILY MVI 1 ea PO DAILY Eliquis 5 mg tablet 5 mg PO ONCE albuterol sulfate 90 mcg/actuation HFA aerosol inhaler 2 puff INHALATION Q6H PRN (Reason: shortness of breath) Qty: 18 6RF pramipexole 1 mg tablet 2 mg PO QPM Qty: 180 0RF aspirin 81 mg tablet,delayed release (DR/EC) 81 mg PO DAILY losartan 25 mg tablet 12.5 mg PO DAILY metoprolol succinate 25 mg tablet extended release 24 hr 25 mg PO DAILY pantoprazole 40 mg tablet,delayed release (DR/EC) 40 mg PO DAILY latanoprost 0.005 % drops EYE-BOTH QPM Referrals: Mateo Gao MD [Primary Care Provider] - Stand Alone Forms: Patient Portal/API
[2023-06-14 14:53] LABS: Troponin I 0.216 ng/mL (0.01-0.034)
[2023-06-14] MEDS: FUROSEMIDE 40 MG/4 ML VIAL IV (15:00)
== END 2023-06-14 16:01 | disposition home or self-care (01) ==
PROVIDERS: Emergency Provider Emergency Medicine; PCP Family Medicine
DX: I50.9 Heart failure, unspecified (principal); Z79.01 Long term (current) use of anticoagulants; Z95.2 Presence of prosthetic heart valve
CPT/HCPCS: 36415; 71045; 71275; 80053; 81003; 83605; 83880; 84484; 85025; 85610; 93005; 93010; 96374; 99284; J1940; Q9967

== ENCOUNTER → 2023-06-23 08:24 | Outpatient (CLI) | payer OTHER, MEDICAID, SELFPAY ==
[2023-06-23 10:10] LABS: Alanine Aminotransferase 49 IU/L (<50); Albumin 4.2 g/dL (3.5-5.0); Albumin Globulin Ratio 1.2 (1.0-2.8); Alkaline Phosphatase 119 U/L (38-126); Aspartate Aminotransferase 35 IU/L (17-59); BUN Creatinine Ratio 18.3 (6-22); Bilirubin Total 0.6 mg/dL (0.2-1.3); Blood Urea Nitrogen 21 mg/dL (9-20); Calcium 9.6 mg/dL (8.4-10.2); Carbon Dioxide 22 mmol/L (22-32); Chloride 99 mmol/L (98-107); Estimated Glomerular Filt Rate > 60 mL/min (>60); Globulin 3.5 g/dL (1.7-4.1); Glucose 99 mg/dL (80-110); HEMOLYSIS < 15 (0-50); Potassium 4.7 mmol/L (3.4-5.1); Sodium 134 mmol/L (137-145); Total Protein 7.7 g/dL (6.3-8.2)
== END ==
PROVIDERS: PCP Family Medicine; Referring Provider Registered Nurse; Visit Provider Registered Nurse
DX: Z98.890 Other specified postprocedural states (principal)
CPT/HCPCS: 36415; 80053

== ENCOUNTER → 2023-08-19 12:47 | Outpatient (CLI) | payer OTHER, MEDICAID, SELFPAY ==
[2023-08-19 13:48] LABS: BUN Creatinine Ratio 11.1 (6-22); Blood Urea Nitrogen 14 mg/dL (9-20); Calcium 9.4 mg/dL (8.4-10.2); Carbon Dioxide 27 mmol/L (22-32); Chloride 105 mmol/L (98-107); Estimated Glomerular Filt Rate > 60 mL/min (>60); Glucose 116 mg/dL (80-110); HEMOLYSIS < 15 (0-50); Potassium 4.1 mmol/L (3.4-5.1); Sodium 139 mmol/L (137-145)
== END ==
PROVIDERS: PCP Family Medicine; Referring Provider Internal Medicine; Visit Provider Internal Medicine
DX: I48.0 Paroxysmal atrial fibrillation (principal)
CPT/HCPCS: 36415; 80048

== ENCOUNTER → 2023-08-26 11:49 | Outpatient (CLI) | payer OTHER, MEDICAID, SELFPAY ==
[2023-08-26 12:41] LABS: BUN Creatinine Ratio 12.1 (6-22); Blood Urea Nitrogen 15 mg/dL (9-20); Calcium 9.5 mg/dL (8.4-10.2); Carbon Dioxide 28 mmol/L (22-32); Chloride 107 mmol/L (98-107); Estimated Glomerular Filt Rate > 60 mL/min (>60); Glucose 93 mg/dL (80-110); HEMOLYSIS < 15 (0-50); Potassium 4.9 mmol/L (3.4-5.1); Sodium 139 mmol/L (137-145)
== END ==
PROVIDERS: PCP Family Medicine; Referring Provider Internal Medicine; Visit Provider Internal Medicine
DX: I50.23 Acute on chronic systolic (congestive) heart failure (principal)
CPT/HCPCS: 36415; 80048

== ENCOUNTER → 2023-12-23 12:49 | Outpatient (CLI) | payer OTHER, MEDICAID, SELFPAY ==
[2023-12-23 13:49] LABS: BUN Creatinine Ratio 15.8 (6-22); Blood Urea Nitrogen 15 mg/dL (9-20); Calcium 9.4 mg/dL (8.4-10.2); Carbon Dioxide 20 mmol/L (22-32); Chloride 106 mmol/L (98-107); Estimated Glomerular Filt Rate > 60 mL/min (>60); Glucose 98 mg/dL (80-110); HEMOLYSIS < 15 (0-50); Potassium 4.2 mmol/L (3.4-5.1); Sodium 138 mmol/L (137-145)
[2023-12-23 14:04] LABS: Free T4, Direct Thyroxine 1.36 ng/dL (0.78-2.19)
[2023-12-23 14:18] LABS: Thyroid Stimulating Hormone 1.51 uIU/mL (0.47-4.68)
== END ==
PROVIDERS: PCP Family Medicine; Referring Provider Internal Medicine; Visit Provider Internal Medicine
DX: I48.0 Paroxysmal atrial fibrillation (principal)
CPT/HCPCS: 36415; 80048; 84439; 84443

== ENCOUNTER → 2024-01-26 12:19 | Outpatient (CLI) | payer OTHER, MEDICAID, SELFPAY ==
--- NOTE | 2024-01-26 12:20 | DI.ECHO.S_ITS ---
[facility] : : [id number] : : [place] : : [id number] : : Phone: [phone] Echocardiogram Report + + :Name: ERIBERTO WATERS Study Date: 01/26/2024 Height: 74 in : :[facility] ReadingLocation: Weight: 260 lb : : Gender: Male BSA: 2.4 m2 : :: 1965 Age: 58 yrs BP: 132/77 mmHg: :Reason For Study: Atrial fibrillation - paroxysmal : :Ordering Physician: ЕЛЕНА, : :CARLOS Performed By: Rosa Elena Snell : :Referring: CARLOS CHRISTIANSEN : + + Interpretation Summary Afib with variable rate 93-103 bpm during the exam. Normal LV size and wall thickness; global hypokinesis and septal dyskinesis which is likely due to post-operative state. EF is 40-45%. Severe biatrial enlargement and mildly dilated RV with mildly reduced RV systolic function. Mitral valve has been repaired by history. No significant regurgitation or stenosis. Compared to prior preoperative echo 03/14/2023, EF is down from 60-65% to 40- 45%. Mitral repair is new. Procedure: A two-dimensional transthoracic echocardiogram with color flow and Doppler was performed. The study quality was technically adequate. Comparison is made with the echocardiogram of 08-27-22. The heart rate ranged between 93-103 bpm during the study. Left Ventricle: The left ventricle is normal in size and wall thickness. The ejection fraction is estimated to be 40-45%. There is basal anteroseptal wall dyskinesis. Diastolic function could not be accurately assessed due to atrial fibrillation. Right Ventricle: There is a pacemaker lead in the right ventricle. The right ventricle is mildly dilated. Right ventricular systolic function is mildly reduced. Atria: The left atrium is severely dilated. The right atrium is severely dilated. The interatrial septum grossly appears intact with no obvious evidence for an atrial septal defect. Mitral Valve: The mitral valve leaflets appear moderately thickened, but open well. The mitral valve has been repaired. There is no mitral regurgitation noted. Aortic Valve: The aortic valve is trileaflet. The aortic valve opens well. No aortic regurgitation is present. Tricuspid Valve: The tricuspid valve leaflets are thin and pliable. There is moderate tricuspid regurgitation. The right ventricular systolic pressure is estimated to be at least 22 mmHg based on an estimated right atrial pressure of 3 mm Hg. Pulmonic Valve: The pulmonic valve is not well visualized. There is mild pulmonic regurgitation. Great Vessels: The aortic root is normal size. The ascending aorta is normal in size. The aortic arch is normal in size. The IVC is of normal diameter and collapses greater than 50% with a sniff. This suggests a low right atrial pressure of 3 mm Hg. Pericardium/ Pleura There is no pericardial effusion. There is no pleural effusion. MMode/2D Measurements & Calculations LVIDd: 4.9 cm LVOT diam: 2.5 cm LVIDs: 3.6 cm Ao root diam: 3.8 cm FS: 26.1 % asc Aorta Diam: 3.8 cm EPSS: 1.1 cm Ao Arch Diam (Prox Trans): 3.1 cm IVSd: 0.97 cm LVPWd: 0.89 cm LV araya. diameter/BSA (cm/m^2): 2.0 LV sys. diameter/BSA (cm/m^2): 1.5 LA A2 area: 39.7 cm2 RA long axis: 6.4 cm LA A4 area: 36.5 cm2 RA area: 32.6 cm2 LA length (vol): 7.3 cm RA vol: 140.2 ml LA vol: 168.9 ml RA : 57.7 ml/m2 LA vol index: 69.5 ml/m2 IVC diam: 2.1 cm RVD1 (basal): 3.9 cm TAPSE: 1.4 cm Doppler Measurements & Calculations Ao V2 max: 98.0 cm/sec LVOT Max Larry: 75.4 cm/sec Ao V2 mean: 72.4 cm/sec LV V1 max P.3 mmHg Ao max P.8 mmHg LV V1 VTI: 13.9 cm Ao mean P.3 mmHg SO(I,D): 3.2 cm2 Ao V2 VTI: 20.7 cm SO(V,D): 3.7 cm2 sev ratio: 0.67 SO indexed to BSA (cm^2/m^2): 1.3 Med Peak E' Larry: 7.6 cm/sec TR max larry: 218.7 cm/sec Lat Peak E' Larry: 10.3 cm/sec TR max P.3 mmHg MVA(VTI): 2.6 cm2 PA V2 max: 43.0 cm/sec PA V2 mean: 26.7 cm/sec PA mean P.34 mmHg MV V2 mean: 62.0 cm/sec SV(LVOT): 67.1 ml MV mean P.3 mmHg MV V2 VTI: 25.5 cm Electronically signed by: Carlos Christiansen M.D. on Reading Physician:02/01/2024 06:30 AM
== END ==
LOC: ECHO 12:19
PROVIDERS: PCP Family Medicine; Referring Provider Internal Medicine; Visit Provider Internal Medicine
DX: I07.1 Rheumatic tricuspid insufficiency (principal); I48.0 Paroxysmal atrial fibrillation
CPT/HCPCS: 93306

== ENCOUNTER → 2024-02-24 11:57 | Outpatient (CLI) | payer OTHER, MEDICAID, SELFPAY ==
[2024-02-24 15:23] LABS: Alanine Aminotransferase 31 IU/L (<50); Albumin 4.5 g/dL (3.5-5.0); Albumin Globulin Ratio 1.6 (1.0-2.8); Alkaline Phosphatase 95 U/L (38-126); Aspartate Aminotransferase 49 IU/L (17-59); BUN Creatinine Ratio 11.8 (6-22); Bilirubin Total 0.4 mg/dL (0.2-1.3); Blood Urea Nitrogen 13 mg/dL (9-20); Calcium 9.2 mg/dL (8.4-10.2); Carbon Dioxide 22 mmol/L (22-32); Chloride 104 mmol/L (98-107); Estimated Glomerular Filt Rate > 60 mL/min (>60); Globulin 2.8 g/dL (1.7-4.1); Glucose 90 mg/dL (80-110); HEMOLYSIS < 15 (0-50); Potassium 4.4 mmol/L (3.4-5.1); Sodium 137 mmol/L (137-145); Total Protein 7.3 g/dL (6.3-8.2)
== END ==
PROVIDERS: PCP Family Medicine; Referring Provider Nurse Practitioner Family; Visit Provider Nurse Practitioner Family
DX: I48.3 Typical atrial flutter (principal)
CPT/HCPCS: 36415; 80053

== ENCOUNTER → 2024-08-06 13:51 | Outpatient (CLI) | payer OTHER, SELFPAY ==
[2024-08-06 15:08] LABS: Alanine Aminotransferase 31 IU/L (<50); Albumin 4.5 g/dL (3.5-5.0); Albumin Globulin Ratio 1.5 (1.0-2.8); Alkaline Phosphatase 69 U/L (38-126); Aspartate Aminotransferase 42 IU/L (17-59); Bilirubin Total 0.5 mg/dL (0.2-1.3); Blood Urea Nitrogen 15 mg/dL (9-20); Calcium 9.7 mg/dL (8.4-10.2); Carbon Dioxide 26 mmol/L (22-32); Chloride 104 mmol/L (98-107); Estimated Glomerular Filt Rate > 60 mL/min (>60); Glucose 95 mg/dL (80-110); HEMOLYSIS < 15 (0-50); Sodium 140 mmol/L (137-145); Total Protein 7.5 g/dL (6.3-8.2)
== END ==
PROVIDERS: PCP Family Medicine; Referring Provider Nurse Practitioner Family; Visit Provider Nurse Practitioner Family
DX: I48.3 Typical atrial flutter (principal)
CPT/HCPCS: 36415; 80053

== ENCOUNTER → 2024-10-09 13:39 | Outpatient (CLI) | payer OTHER, SELFPAY ==
[2024-10-09 14:39] LABS: Alanine Aminotransferase 38 IU/L (<50); Albumin 4.4 g/dL (3.5-5.0); Albumin Globulin Ratio 1.8 (1.0-2.8); Alkaline Phosphatase 91 U/L (38-126); Aspartate Aminotransferase 50 IU/L (17-59); Bilirubin Total 0.6 mg/dL (0.2-1.3); Blood Urea Nitrogen 15 mg/dL (9-20); Carbon Dioxide 22 mmol/L (22-32); Chloride 106 mmol/L (98-107); Estimated Glomerular Filt Rate > 60 mL/min (>60); Globulin 2.4 g/dL (1.7-4.1); Glucose 123 mg/dL (70-99); HEMOLYSIS 22 (0-50); Potassium 4.4 mmol/L (3.4-5.1); Sodium 138 mmol/L (137-145); Total Protein 6.8 g/dL (6.3-8.2)
[2024-10-09 14:55] LABS: Free T4, Direct Thyroxine 1.42 ng/dL (0.78-2.19)
[2024-10-09 15:09] LABS: Thyroid Stimulating Hormone 1.63 uIU/mL (0.47-4.68)
== END ==
LOC: LAB 13:42
PROVIDERS: PCP Family Medicine; Referring Provider Internal Medicine; Visit Provider Internal Medicine
DX: I48.0 Paroxysmal atrial fibrillation (principal); I48.3 Typical atrial flutter; I50.23 Acute on chronic systolic (congestive) heart failure
CPT/HCPCS: 36415; 80053; 83735; 84439; 84443

== ENCOUNTER → 2025-01-10 07:38 | Outpatient (CLI) | payer OTHER, SELFPAY ==
--- NOTE | 2025-01-10 07:39 | DI.ECHO.S_ITS ---
Version: 1 Study ID: [id number] [place] [address] Name: ERIBERTO WATERS Study Date: 01/10/2025, 8: 12 AM : 1965 BP: 112 / 68 mmHg Gender: Male Height: 74 in Age: 59 Years Weight: 260 lb BSA: 2.43 mA??? Ordering: CARLOS CHRISTIANSEN Referring: CARLOS CHRISTIANSEN Clinician: Rosa Elena Snell Reason For Study: Atrial fibrillation - paroxysmal History: Summary Statements Normal sinus rhythm with first-degree AV block. Normal LV size and wall thickness. Normal wall motion and LV systolic function. Ejection fraction is 55-60%. Severe left atrial enlargement; mild right atrial enlargement. Mitral valve is repaired in May 2023 via P2 triangular resection, commissuroplasty and 34 mm annuloplasty ring. Repair is functioning normally. There is a pacing lead traversing the tricuspid valve with trace associated tricuspid regurgitation. Estimated PA systolic pressure is 27 mmHg assuming right atrial pressure of 3 mmHg. Borderline dilated ascending aorta measuring 4 cm. Compared to prior study obtained on January 26, 2024, LV is more dynamic. A-fib is no longer present. Mildly dilated RV is no longer observed and RV is normal in size. Procedure: A two-dimensional transthoracic echocardiogram with color flow and Doppler was performed. The study quality was technically adequate. Comparison is made with the echocardiogram of 01-26-24. The heart rate ranged between 58-59 bpm during the study. Left Ventricle: The left ventricle is normal in size and wall thickness. The ejection fraction is estimated to be 50-55%. Diastolic function could not be accurately assessed due to paced rhythm. Right Ventricle: There is a pacemaker lead in the right ventricle. The right ventricular systolic function is normal. Atria: The left atrium is severely dilated. The right atrium is mildly dilated. The interatrial septum grossly appears intact with no obvious evidence for an atrial septal defect. Mitral Valve: The mitral valve has been surgically repaired and an annuloplasty ring sewn in place. There is no mitral regurgitation noted. Aortic Valve: The aortic valve is trileaflet. The aortic valve opens well. No aortic regurgitation is present. Tricuspid Valve: The tricuspid valve leaflets are thin and pliable. There is a trace or physiologic amount of tricuspid regurgitation. The right ventricular systolic pressure is estimated to be at least 27 mmHg based on an estimated right atrial pressure of 3 mm Hg. Pulmonic Valve: The pulmonic valve is not well seen, but is grossly normal. There is a trace or physiologic amount of pulmonic regurgitation. Great Vessels: The aortic root is borderline dilated. The ascending aorta is normal in size. The aortic arch is normal in size. The IVC is of normal diameter and collapses greater than 50% with a sniff. This suggests a low right atrial pressure of 3 mm Hg. Pericardium/ Pleura: There is no pericardial effusion. There is no pleural effusion. 2D and M-Mode Measurements and Calculations LVIDd: 5.1 cm AoV Openin.26 cm LVIDs: 3.6 cm LVOT diam: 2.40 cm IVSd: 0.79 cm Ao root diam: 4.0 cm LVPWd: 0.81 cm asc Aorta Diam: 3.5 cm LV araya. diameter/BSA (cm/m^2): 2.10 Ao Arch Diam (Prox Trans): 2.6 cm LV sys. diameter/BSA (cm/m^2): 1.49 EPSS: 0.61 cm RVD1 (basal): 3.0 cm TAPSE: 2.39 cm LA A4 area: 33.6 awning installer??? IVC diam: 1.94 cm LA A2 area: 34.7 awning installer??? RA area: 26.4 awning installer??? LA length (vol): 7.3 cm RA long axis: 6.1 cm LA vol: 136.0 ml RA vol: 96.4 ml LA vol index: 56.0 ml/mA??? RA : 39.7 ml/mA??? Doppler Measurements and Calculations Ao V2 max: 104.6 cm/sec LVOT Max Larry: 83.2 cm/sec Ao V2 mean: 76.9 cm/sec LV V1 max P.8 mmHg Ao V2 VTI: 28.1 cm LV V1 VTI: 20.7 cm Ao max P.4 mmHg SV(LVOT): 93.9 ml Ao mean P.6 mmHg SO(I,D): 3.3 awning installer??? SO(V,D): 3.6 awning installer??? SO indexed to BSA (cm^2/m^2): 1.38 sev ratio: 0.74 MV E max larry: 149.8 cm/sec MV dec time: 0.37 sec MV A max larry: 74.3 cm/sec MV mean P.8 mmHg MV E/A: 2.01 MVA(VTI): 1.64 awning installer??? Med Peak E' Larry: 9.1 cm/sec Lat Peak E' Larry: 9.2 cm/sec E/e' average: 16.4 TR max larry: 243.0 cm/sec PA mean P.60 mmHg TR max P.6 mmHg PA V2 max: 53.1 cm/sec Electronically signed by: Carlos Christiansen M.D. 01/17/2025, 5: 01 PM
== END ==
LOC: ECHO 07:39
PROVIDERS: PCP Family Medicine; Referring Provider Internal Medicine; Visit Provider Internal Medicine
DX: I48.0 Paroxysmal atrial fibrillation (principal)
CPT/HCPCS: 93306